=== PATIENT | female | born 1945 | race Caucasian/White ===

== ENCOUNTER → 2019-08-12 | Outpatient (CLI) | payer MEDICARE ==
--- NOTE | 2019-08-12 16:54 | BD ---
EXAMINATION TYPE: Axial Bone Density DATE OF EXAM: 08/12/2019 COMPARISON: NONE CLINICAL HISTORY: Postmenopausal Height: 63 Weight: 140.5 FRAX RISK QUESTIONS: Alcohol (3 or more units per day): no Family History (Parent hip fracture): yes mother Glucocorticoids (More than 3mos): no (Ex: prednisone, prednisolone, methylprednisolone, dexamethasone, and hydrocortisone). History of Fracture in Adulthood: yes Secondary Osteoporosis: 1. Type 1 Diabetes: no 2. Hyperthyroidism: no 3. Menopause before 45: no 4. Malnutrition: no 5. Chronic liver disease: no Rheumatoid Arthritis: no Current Tobacco Use: no RISK FACTORS HISTORY OF: History of Wrist Fracture: left When: 7 years ago Family History of Osteoporosis: no Active: yes Diet low in dairy products/other sources of calcium: no Postmenopausal woman: age 53 Lost more than 2 inches in height since high school: no MEDICATIONS: cholesterol meds EXAM MEASUREMENTS: Bone mineral densitometry was performed using the [employer]. Bone mineral density as measured about the Lumbar spine is: ----- L1-L4(G/cm2): 1.026 T Score Values are as follows: ----- L2: -1.7 ----- L3: -1.2 ----- L4: -0.2 ----- L1-L4: 0.5 Bone mineral density has: increased 2.2 % since study of: 12.11.2011 Bone mineral density about the R hip (g/cm2): 0.702 Bone mineral density about the L hip (g/cm2): 0.745 T Score values are as follows: -----R Neck: -2.4 -----L Neck: -2.1 -----R Total: -2.7 -----L Total: -2.9 Bone mineral density has: decreased -5.4 % since study of: 12.11.2011 IMPRESSION: Osteopenia (T Score between -2.5 and -1). There is slightly increased risk of fracture and the patient may be considered for treatment. Re-Screen 2-5 years. NOTE: T-SCORE=SD OF THE YOUNG ADULT MEAN.
--- NOTE | 2019-08-14 13:33 | MM ---
Reason for exam: screening (asymptomatic). Last mammogram was performed 4 years and 2 months ago. History: Patient is postmenopausal and had first child at age 33. Benign US biopsy breast VAD LT of the left breast, June 22, 2015. Benign excisional biopsy of the left breast, 1999. Took estrogen for 1 year. Physical Findings: A clinical breast exam by your physician is recommended on an annual basis and results should be correlated with mammographic findings. MG 3D Screening Mammo W/Cad Bilateral CC and MLO view(s) were taken. Prior study comparison: June 22, 2015, left breast MG diagnostic mammo LT wo CAD. June 15, 2015, left breast MG work up mamm w CAD LT. June 09, 2015, bilateral MG screening mammo w CAD. December 11, 2011, bilateral digital screening mammo w/CAD. The breast tissue is heterogeneously dense. This may lower the sensitivity of mammography. Finding: There are stable, linear, coarse heterogeneous, grouped/clustered calcifications in the left breast. Previous mammotome biopsy in the left breast. No significant changes in finding since June 22, 2015, June 15, 2015, June 09, 2015, and December 11, 2011. ASSESSMENT: Benign, BI-RAD 2 RECOMMENDATION: Routine screening mammogram of both breasts in 1 year.
== END | disposition home or self-care (01) ==
LOC: RADMAMWWP 12:48
PROVIDERS: ATTEND Family Medicine
DX: Z12.31 Encounter for screening mammogram for malignant neoplasm of breast (principal); M85.80 Other specified disorders of bone density and structure, unspecified site; Z78.0 Asymptomatic menopausal state
CPT/HCPCS: 77063; 77067; 77080